=== PATIENT | male | born 1965 | race Caucasian/White ===

== ENCOUNTER 2019-07-29 17:25 | Emergency (ER) | payer OTHER ==
[~2019-07-29] VITALS: Ht 182.9 cm; Wt 83.9 kg
[~2019-07-29 17:25] MED LIST: KEFLEX500 MG PO; PERCOCET 5-3251 EACH PO; VERTICALM25 MG PO; ZOFRAN ODT4 MG PO
[2019-07-29 18:22] LABS: ABSOLUTE EOSINOPHILS 0.2 thou/uL (0.0-0.7); ABSOLUTE MONOCYTES 0.7 thou/uL (0.0-1.2); ABSOLUTE NEUTROPHILS 4.1 thou/uL (1.6-8.1); BASOPHILS 0.5 %; EOSINOPHILS 2.1 %; HEMATOCRIT 36.4 % (42.0-52.0); HEMOGLOBIN 12.8 gm/dL (14.0-18.0); LYMPHOCYTES 37.6 %; MCH 29.9 pg (26.0-34.0); MCHC 35.1 g/dL (28.0-37.0); MONOCYTES 8.1 %; MPV 10.2 fl. (7.2-11.1); NUCLEATED RBCS 0 /100WBC; PLATELET COUNT* 194 thou/uL (150-400); POLYS 51.7 %; RBC 4.28 mil/uL (4.50-6.00)
[2019-07-29 18:28] VITALS: BP 153/97
[2019-07-29 18:29] LABS: CALCIUM 7.8 mg/dL (8.5-10.1); CREATININE 1.1 mg/dL (0.6-1.3); POTASSIUM 3.2 mmol/L (3.5-5.1)
[2019-07-29 18:31] LABS: APTT 22.7 Seconds (25.0-31.3); PROTIME 10.6 Seconds (9.20-11.50)
[2019-07-29 18:34] LABS: ALBUMIN 3.3 g/dL (3.4-5.0); TOTAL BILIRUBIN 0.3 mg/dL (<0.1-1.0); TOTAL PROTEIN 6.1 g/dL (6.4-8.2)
== END 2019-07-29 18:29 | disposition short-term general hospital (02) ==
LOC: M.ERS 17:25
PROVIDERS: Physician Assistant
DX: T22.321A Burn of third degree of right elbow, initial encounter (principal); T31.0 Burns involving less than 10% of body surface; X08.8XXA Exposure to other specified smoke, fire and flames, initial encounter; Y93.89 Activity, other specified; Y92.89 Other specified places as the place of occurrence of the external cause; Y99.8 Other external cause status